=== PATIENT | female | born 1995 | race African-American/Black ===

== ENCOUNTER 2017-04-30 13:18 | Emergency (ER) | payer SELFPAY ==
[2017-04-30 13:28] VITALS: BP 126/83
[2017-04-30 14:29] LABS: APPEARANCE,URINE CLEAR; BILIRUBIN,URINE NEGATIVE (NEGATIVE); GLUCOSE, URINE NEGATIVE (NEGATIVE); KETONES,URINE NEGATIVE (NEGATIVE); LEUKOCYTE ESTERASE,URINE NEGATIVE (NEGATIVE); NITRITE,URINE NEGATIVE (NEGATIVE); PROTEIN,URINE NEGATIVE (NEGATIVE); URINE SPECIFIC GRAVITY 1.019; UROBILINOGEN,URINE NEGATIVE mg/dL (<2.0)
--- NOTE | 2017-04-30 14:38 | ER Document Report ---
ED GI/ - General Chief Complaint: Abdominal Pain Stated Complaint: ABDOMINAL PAIN,NAUSEA Time Seen by Provider: 04/30/17 13:39 Notes: Patient is a 21-year-old female, past medical history PCOS, schizophrenia, presents with lower abdominal cramping and nausea. Her last menstrual period was March 19, but her periods are irregular she is not sure she is . Denies vaginal bleeding, vaginal discharge, nausea, vomiting, current abdominal pain, dysuria, flank pain, hematuria, chest pain, shortness of breath, diarrhea or constipation. TRAVEL OUTSIDE OF THE [place] IN LAST 30 DAYS: No - Related Data Allergies/Adverse Reactions: No Known Allergies Allergy (Verified 04/30/17 13:24) Past Medical History - General Information source: Patient - Social History Smoking Status: Never Smoker Family History: None Patient has suicidal ideation: No Patient has homicidal ideation: No Renal/ Medical History: Denies: Hx Peritoneal Dialysis Review of Systems - Review of Systems Notes: REVIEW OF SYSTEMS: CONSTITUTIONAL: -fevers, -chills EENT: -eye pain, -difficulty swallowing, -nasal congestion CARDIOVASCULAR:-chest pain, -syncope. RESPIRATORY: -cough, -SOB GASTROINTESTINAL: +lower abdominal cramping, +nausea, -vomiting, -diarrhea GENITOURINARY: -dysuria, -hematuria MUSCULOSKELETAL: -back pain, -neck pain SKIN: -rash or skin lesions. HEMATOLOGIC: -easy bruising or bleeding. LYMPHATIC: -swollen, enlarged glands. NEUROLOGICAL: -altered mental status or loss of consciousness, -headache, - neurologic symptoms PSYCHIATRIC: -anxiety, -depression. ALL OTHER SYSTEMS REVIEWED AND NEGATIVE. Physical Exam - Vital signs Vitals: Temp Pulse Resp BP Pulse Ox 98.9 F 80 16 126/83 H 99 04/30/17 13:24 04/30/17 13:24 04/30/17 13:24 04/30/17 13:24 04/30/17 13:24 - Notes Notes: PHYSICAL EXAMINATION: GENERAL: Well-appearing, well-nourished and in no acute distress. HEAD: Atraumatic, normocephalic. EYES: Pupils equal round and reactive to light, extraocular movements intact, sclera anicteric, conjunctiva are normal. ENT: nares patent, oropharynx clear without exudates. Moist mucous membranes. NECK: Normal range of motion, supple without lymphadenopathy LUNGS: Breath sounds clear to auscultation bilaterally and equal. No wheezes rales or rhonchi. HEART: Regular rate and rhythm without murmurs ABDOMEN: Soft, nontender, normoactive bowel sounds. No guarding, no rebound. No masses appreciated. EXTREMITIES: Normal range of motion, no pitting or edema. No cyanosis. NEUROLOGICAL: Cranial nerves grossly intact. Normal speech, normal gait. Normal sensory and motor exams. PSYCH: Normal mood, normal affect. SKIN: Warm, Dry, normal turgor, no rashes or lesions noted. Course - Re-evaluation Re-evalutation: Patient appears well. Abdomen is soft and nontender. Her urine is clean and she is not . Instructed her to begin Motrin for abdominal cramping and will provide her with a few days of Zofran. Instructed her to follow-up with [facility] for further evaluation of her PCOS. - Vital Signs Vital signs: Temp Pulse Resp BP Pulse Ox 98.9 F 80 16 126/83 H 99 04/30/17 13:24 04/30/17 13:24 04/30/17 13:24 04/30/17 13:24 04/30/17 13:24 Discharge - Discharge Clinical Impression: Abdominal cramping, Nausea Condition: Stable Disposition: HOME, SELF-CARE Additional Instructions: ABDOMINAL PAIN: There are many causes of abdominal pain. Pain can mean a serious problem requiring surgery (such as appendicitis). It can also be an innocent problem that goes away on its own (such as a viral infection). Often, time must pass to determine the cause of pain. The physician does not feel that hospitalization is necessary, at present. Things may change within the next 24 hours. Call the doctor or come back for re- examination if any problems occur, such as: (1) Pain that becomes more severe, steady, or becomes concentrated in one specific area. Also, pain that is more severe with movement or coughing. (2) Vomiting that persists or becomes more frequent. (3) Blood in the vomitus, urine, or bowel movements. Blood in the stool may have a tarry or black appearance. (4) Shaking chills or fever greater than 100 degrees F. (5) The abdomen becomes more distended or swollen. (6) Bowel movements cease. (7) Failure to improve as expected. NORMAL EXAM AND WORKUP: At this time, your examination and workup show no significant abnormality. No significant abnormal physical findings are noted. All laboratory, EKG, and imaging (x-ray, CT scans, ultrasound) studies that were ordered show no significant abnormality. Although your examination and all studies that were ordered showed no significant abnormal finding, there are no examinations and no studies that are 100% accurate. There is always the possibility that some abnormality could exist and not be detected with physical examination or within the limits and capabilities of laboratory and other studies. You should return or follow up as you were instructed on your visit today for further evaluation if your symptoms do not resolve. ANTINAUSEA MEDICATION: You have been given a medication to suppress nausea and vomiting. This type of medication can be given as a shot, pill, or suppository. It will usually last for many hours. Pills and shots usually last six to eight hours, suppositories last about 12 hours. For the typical illness, only one or two doses of the medication may be necessary. Mild lightheadedness may occur. This type of medicine can cause drowsiness. Do not drive or operate dangerous machinery while under its influence. Do not mix with alcohol. See your doctor at once if you have muscle spasms or tightness, or uncontrollable motions (particularly of the neck, mouth, or jaw). Persistent vomiting or severe lightheadedness should also be evaluated by the physician. FOLLOW-UP CARE: If you have been referred to a physician for follow-up care, call the physician s office for an appointment as you were instructed or within the next two days. If you experience worsening or a significant change in your symptoms, notify the physician immediately or return to the Emergency Department at any time for re-evaluation. Prescriptions: Ondansetron [Zofran Odt 4 mg Tablet] 1 - 2 tab PO Q4H PRN #15 tab.rapdis PRN Reason: For Nausea/Vomiting Referrals: ATUL STONE MD [ACTIVE STAFF] - Follow up as needed
== END 2017-04-30 14:52 | disposition home or self-care (01) ==
LOC: ER 13:18
DX: R10.30 Lower abdominal pain, unspecified (principal); R11.0 Nausea
CPT/HCPCS: 81001; 81025; 99284

== ENCOUNTER 2017-05-01 12:50 | Emergency (ER) | payer SELFPAY ==
[2017-05-01] MEDS ORDERED: ONDANSETRON 4 MG TAB.RAPDIS PO ONE (13:40)
[2017-05-01] MEDS ORDERED: IBUPROFEN 600 MG TABLET PO ONE (13:40)
--- NOTE | 2017-05-01 13:42 | ER Document Report ---
ED Medical Screen (RME) - General Chief Complaint: Abdominal Pain Stated Complaint: ABDOMINAL CRAMPING Time Seen by Provider: 05/01/17 13:36 Notes: Patient is a 21-year-old female, past medical history PCOS, schizophrenia, presents with 2 days of right-sided pelvic pain and cramping. She is also having nausea. She was seen in the emergency room yesterday, had a negative test and was discharged home with anti-inflammatories. Patient denies diarrhea, constipation, vomiting or urinary symptoms. PE: Left lower quadrant tenderness, normal bowel sounds I have greeted and performed a rapid initial assessment of this patient. A comprehensive ED assessment and evaluation of the patient, analysis of test results and completion of the medical decision making process will be conducted by additional ED providers. TRAVEL OUTSIDE OF THE [place] IN LAST 30 DAYS: No - Related Data Allergies/Adverse Reactions: No Known Allergies Allergy (Verified 04/30/17 13:24) Past Medical History Renal/ Medical History: Denies: Hx Peritoneal Dialysis Physical Exam - Vital signs Vitals: Temp Pulse Resp BP Pulse Ox 98.3 F 80 16 135/71 H 97 05/01/17 12:54 05/01/17 12:54 05/01/17 12:54 05/01/17 12:54 05/01/17 12:54 Course - Vital Signs Vital signs: Temp Pulse Resp BP Pulse Ox 98.3 F 80 16 135/71 H 97 05/01/17 12:54 05/01/17 12:54 05/01/17 12:54 05/01/17 12:54 05/01/17 12:54
--- NOTE | 2017-05-01 14:18 | ER Document Report ---
ED GI/ - General Chief Complaint: Abdominal Pain Stated Complaint: ABDOMINAL CRAMPING Time Seen by Provider: 05/01/17 13:36 Notes: 21 yo female with hx/o PCOS and schizophrenia c/o lower abdominal cramping x several days. pt reports irregular periods. pt was evaluated in ED yesterday for same. negative UHCG. treated with motrin but reports cramping has been more intense today and a little sharper on the left side. denies dysuria, vaginal discharge, vaginal odor or pain. no n/v TRAVEL OUTSIDE OF THE [place] IN LAST 30 DAYS: No - HPI Patient complains to provider of: Abdominal pain Timing/Duration: Gradual, Persistent, Worse Quality of pain: Cramping Pain Level: 4 Location: Suprapubic Adult Front & Back Diagram: 1 - pain, cramping Vaginal bleeding (Compared to normal period): None - Related Data Allergies/Adverse Reactions: No Known Allergies Allergy (Verified 04/30/17 13:24) Past Medical History - General Information source: Patient - Social History Smoking Status: Never Smoker Chew tobacco use (# tins/day): No Frequency of alcohol use: None Drug Abuse: None Lives with: Spouse/Significant other Family History: None Patient has suicidal ideation: No Patient has homicidal ideation: No - Medical History Medical History: Other - PCOS Renal/ Medical History: Denies: Hx Peritoneal Dialysis Psychiatric Medical History: Reports: Hx Schizophrenia Review of Systems - Review of Systems Constitutional: No symptoms reported EENT: No symptoms reported Cardiovascular: No symptoms reported Respiratory: No symptoms reported Gastrointestinal: See HPI Genitourinary: No symptoms reported Female Genitourinary: No symptoms reported Musculoskeletal: No symptoms reported Skin: No symptoms reported Hematologic/Lymphatic: No symptoms reported Neurological/Psychological: No symptoms reported Physical Exam - Vital signs Vitals: Temp Pulse Resp BP Pulse Ox 98.3 F 80 16 135/71 H 97 05/01/17 12:54 05/01/17 12:54 05/01/17 12:54 05/01/17 12:54 05/01/17 12:54 Interpretation: Normal - General General appearance: Appears well, Alert In distress: None - HEENT Head: Normocephalic, Atraumatic Eyes: Normal Pupils: PERRL - Respiratory Respiratory status: No respiratory distress Chest status: Nontender Breath sounds: Normal Chest palpation: Normal - Cardiovascular Rhythm: Regular Heart sounds: Normal auscultation Murmur: No - Abdominal Inspection: Normal Distension: No distension Bowel sounds: Normal Tenderness: Tender - mild suprapbic tenderness. No: McBurney's point, Childs's sign, Guarding, Rebound Organomegaly: No organomegaly - Back Back: Normal, Nontender - Extremities General upper extremity: Normal inspection, Nontender, Normal color, Normal ROM , Normal temperature General lower extremity: Normal inspection, Nontender, Normal color, Normal ROM , Normal temperature, Normal weight bearing. No: Gaudencio's sign - Neurological Neuro grossly intact: Yes Cognition: Normal Orientation: AAOx4 Cj Coma Scale Eye Opening: Spontaneous [place] Coma Scale Verbal: Oriented [place] Coma Scale Motor: Obeys Commands [place] Coma Scale Total: 15 Speech: Normal Motor strength normal: LUE, RUE, LLE, RLE Sensory: Normal - Psychological Associated symptoms: Normal affect, Normal mood - Skin Skin Temperature: Warm Skin Moisture: Dry Skin Color: Normal Course - Re-evaluation Re-evalutation: 05/01/17 14:20 pt appears well, NAD. abdomen is soft, mildly tender suprapubic area. will continue to monitor 05/01/17 15:53 serum HCG neg, US normal. abdomen soft, nontender. pt is stable for discharge and SQL REPORT WRITER f/u. pt agreeable with plan - Vital Signs Vital signs: Temp Pulse Resp BP Pulse Ox 98.3 F 80 16 135/71 H 97 05/01/17 12:54 05/01/17 12:54 05/01/17 12:54 05/01/17 12:54 05/01/17 12:54 Discharge - Discharge Clinical Impression: Abdominal cramping, Nausea Condition: Stable Disposition: HOME, SELF-CARE Instructions: Antinausea Medication ([facility]) Additional Instructions: Take your Ibuprofen as prescribed Anti nausea medication as needed Follow up with PDM or SQL REPORT WRITER if symptoms persist Forms: Elevated Blood Pressure
--- NOTE | 2017-05-01 15:36 | RADIOLOGY REPORT (SQ) ---
EXAM DESCRIPTION: U/S NON OB PEL TV W/DOPPLER COMPLETED DATE/TIME: 05/01/2017 2:52 pm REASON FOR STUDY: left adnexal pain COMPARISON: None. TECHNIQUE: Dynamic and static grayscale images acquired of the pelvis via transvaginal approach and recorded on PACS. Additional selected color Doppler and spectral images recorded. LIMITATIONS: None. FINDINGS: UTERUS: Contour normal. No mass. ENDOMETRIAL STRIPE: No focal or generalized thickening. No masses. CERVIX: No nabothian cysts. RIGHT OVARY: No abnormal masses. RIGHT OVARY DOPPLER: Normal arterial vascular flow without evidence for torsion. LEFT OVARY: No abnormal masses. LEFT OVARY DOPPLER: Normal arterial vascular flow without evidence for torsion. FREE FLUID: Small amount. OTHER: No other significant finding. MEASUREMENTS: UTERUS: 5.6 x 3.6 x 2.6 cm ENDOMETRIAL STRIPE: 1 mm. RIGHT OVARY: 2.6 x 2.2 x 2.5 cm LEFT OVARY: 2.1 x 1.5 x 2.0 cm IMPRESSION: NORMAL TRANSVAGINAL PELVIC ULTRASOUND. TECHNICAL DOCUMENTATION: JOB ID: [id number]- All Rights Reserved
[2017-05-01 16:07] VITALS: BP 131/82
== END 2017-05-01 16:13 | disposition home or self-care (01) ==
LOC: ER 12:50
DX: R10.9 Unspecified abdominal pain (principal); F20.9 Schizophrenia, unspecified; R11.0 Nausea
CPT/HCPCS: 99284; 36415; 84702; 76830; 93976; S0119

== ENCOUNTER 2017-05-12 22:43 | Emergency (ER) | payer SELFPAY ==
--- NOTE | 2017-05-13 00:15 | ER Document Report ---
ED General - General Chief Complaint: Syncope/ facial injury Stated Complaint: POSSIBLE SYNCOPE/FACE INJURY Time Seen by Provider: 05/12/17 23:57 Notes: Patient is a 21-year-old female who presents with complaint of possible syncopal episode. Patient said that she had schizophrenia. She says she suddenly felt overwhelmed with anxiety. She said that she felt forces in her body that caused her to go to the ground. She said she was on her hands and knees and then she felt as if something came behind her head to slam down to the concrete. No complete loss of consciousness. Patient has a history of schizophrenia. No other completes TRAVEL OUTSIDE OF THE [place] IN LAST 30 DAYS: No - Related Data Allergies/Adverse Reactions: No Known Allergies Allergy (Verified 04/30/17 13:24) Past Medical History - Social History Smoking Status: Never Smoker Frequency of alcohol use: None Drug Abuse: None Family History: None Renal/ Medical History: Denies: Hx Peritoneal Dialysis Psychiatric Medical History: Reports: Hx Schizophrenia Review of Systems - Review of Systems Notes: My Normal Review Basic REVIEW OF SYSTEMS: CONSTITUTIONAL : Denies fever, chills, or sweats. Denies recent illness. EENT: Facial pain. CARDIOVASCULAR: Denies chest pain. RESPIRATORY: Denies cough, cold, or chest congestion. Denies shortness of breath, difficulty breathing, or wheezing. GASTROINTESTINAL: Denies abdominal pain. Denies nausea, vomiting, or diarrhea. Denies constipation. Last BM: MUSCULOSKELETAL: Denies neck or back pain or joint pain or swelling. SKIN: Denies rash or skin lesions. NEUROLOGICAL: Denies altered mental status or loss of consciousness. Denies headache. Denies weakness or paralysis or loss of use of either side. Denies problems with gait or speech. Denies sensory or motor loss. PSYCHIATRIC: Anxiety. Some hallucinations. ALL OTHER SYSTEMS REVIEWED AND NEGATIVE. Physical Exam - Vital signs Vitals: Resp 18 05/12/17 22:44 - Notes Notes: General Appearance: Well nourished, alert, cooperative, no acute distress, no obvious discomfort. Vitals: reviewed, See vital signs table. Head: Some swelling over the forehead and over the right maxillary area. A few superficial abrasions. Eyes: PERRL, EOMI, Conjuctiva clear Mouth: No decreasd moisture Throat: No tonsillar inflammation, No airway obstruction, Neck: Supple, no neck tenderness, Lungs: No wheezing, No rales, No rhonci, No accessory muscle use, good air exchange bilaterally. Heart: Normal rate, Regular rythm, No murmur, no rub Abdomen: Normal BS, soft, No rigidity, No abdominal tenderness, No guarding, no rebound, no abdominal masses, no organomegaly Extremities: strength 5/5 in all extremities, good pulses in all extremities, no swelling or tenderness in the extremities, no edema. Skin: warm, dry, appropriate color, no rash Neuro: speech clear, oriented x 3, normal affect, responds appropriately to questions. Nerves II through XII are intact. Distal sensation intact. Patient moves all extremities without difficulty. Course - Re-evaluation Re-evalutation: 05/13/17 01:31 Patient says she is feeling much improved. I did offer for her to stay and speak with her psychiatry but she says she prefers to follow-up outpatient with her own doctor. She said she would return if she had recurrent hallucinations or worsening anxiety or feels unwell. CT scan of her face is negative for any fracture. She has just some superficial abrasions that did not require any type of suturing. At this time I feel she is safe to be discharged home but she is encouraged to return to ER if she feels worse in any way. Patient agrees with plan and will be discharged home. Dictation of this chart was performed using voice recognition software; therefore, there may be some unintended grammatical errors. - Vital Signs Vital signs: Temp Pulse Resp BP Pulse Ox 99.0 F 119 H 18 104/58 L 96 05/12/17 22:51 05/12/17 22:51 05/12/17 22:51 05/12/17 22:51 05/12/17 22:51 Discharge - Discharge Clinical Impression: Facial contusion Qualifiers: Encounter type: initial encounter Qualified Code(s): S00.83XA - Contusion of other part of head, initial encounter Condition: Good Disposition: HOME, SELF-CARE Additional Instructions: Please return to the ER if you have recurrent hallucinations, uncontrollable anxiety, severe headache, vomiting, thoughts of suicide, or if you feel unwell. Please follow up with your doctor at the next available appointment.
--- NOTE | 2017-05-13 01:07 | RADIOLOGY REPORT (SQ) ---
EXAM DESCRIPTION: CT FACIAL AREA WITHOUT COMPLETED DATE/TIME: 05/13/2017 12:43 am REASON FOR STUDY: trauma COMPARISON: None. TECHNIQUE: Noncontrasted images through the facial bones and orbits windowed for bone and soft tissu e. Additional coronal and sagittal reconstructed images reviewed. All images stored on PACS. All CT scanners at this facility use dose modulation, iterative reconstruction, and/or weight based d osing when appropriate to reduce radiation dose to as low as reasonably achievable (ALARA). [facility]: Dose Right [facility]: CareDose [facility]: Dose Right [facility]: Teradose 4D [facility]: [employer] RADIATION DOSE: Up-to-date CT equipment and radiation dose reduction techniques were employed. CTDIv ol: 30.4 mGy. DLP: 543 mGy-cm. mGy. LIMITATIONS: None. FINDINGS: FACIAL BONES: No fracture or bone lesion. ORBITS: Intact. No fracture. Symmetric intact globes and retroorbital soft tissues. PARANASAL SINUSES: Clear. No significant mucosal thickening, mass or fluid. No nasal polyps. Maxill ragini sinus outlets are patent. 0.5 cm penetration of bilateral maxillary molars at the posterior aspe cts of the maxillary air cells. SOFT TISSUES: No mass or edema. INFERIOR BRAIN: Limited view. No acute findings. OTHER: No other significant finding. IMPRESSION: Facial bones appear intact. Moderate reversed lordotic curvature of the mid cervical sp ine which may indicate soft tissue injury or spasm. TECHNICAL DOCUMENTATION: JOB ID: [id number] Quality ID # [id number]: Final reports with documentation of one or more dose reduction techniques (e.g., Au tomated exposure control, adjustment of the mA and/or kV according to patient size, use of iterative reconstruction technique) 2010 [employer]- All Rights Reserved
[2017-05-13 02:23] VITALS: BP 128/66
== END 2017-05-13 02:20 | disposition home or self-care (01) ==
LOC: ER 22:43
DX: S00.83XA Contusion of other part of head, initial encounter (principal); X58.XXXA Exposure to other specified factors, initial encounter; F41.9 Anxiety disorder, unspecified; F20.9 Schizophrenia, unspecified
CPT/HCPCS: 70486; 99285

== ENCOUNTER 2017-06-21 13:07 | Emergency (ER) | payer SELFPAY ==
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
[2017-06-21] MEDS ORDERED: PALIPERIDONE 6 MG TAB.ER.24 PO ONE (15:17)
[2017-06-21 15:52] VITALS: BP 127/97
== END 2017-06-21 15:52 | disposition home or self-care (01) ==
LOC: ER 13:07
DX: F20.0 Paranoid schizophrenia (principal); F17.200 Nicotine dependence, unspecified, uncomplicated
CPT/HCPCS: 99284; J3490

== ENCOUNTER 2018-01-12 22:34 | Emergency (ER) | payer OTHER ==
--- NOTE | 2018-01-12 23:34 | ER Document Report ---
ED General - General Chief Complaint: Flank Pain Stated Complaint: FLANK PAIN Time Seen by Provider: 01/12/18 23:08 Mode of Arrival: Ambulatory Information source: Patient Notes: 22-year-old female presents with complaints of flank pain chest wall pain on the left. Patient notes that she was having pain on the right side has been using left-sided muscles at work lifting heavy objects, patient notes that now it hurts to side bend rotate to a deep breath. She denies any DVT or PE risk factors notes it hurts upon palpation TRAVEL OUTSIDE OF THE U.S. IN LAST 30 DAYS: No - HPI Onset: Other Onset/Duration: Persistent Quality of pain: Achy Severity: Mild Pain Level: 1 Associated symptoms: Body/muscle aches Exacerbated by: Movement, Walking Relieved by: Denies Similar symptoms previously: Yes Recently seen / treated by doctor: No - Related Data Allergies/Adverse Reactions: No Known Allergies Allergy (Verified 04/30/17 13:24) Past Medical History - Social History Smoking Status: Never Smoker Cigarette use (# per day): No Chew tobacco use (# tins/day): No Smoking Education Provided: No Family History: Reviewed & Not Pertinent Renal/ Medical History: Denies: Hx Peritoneal Dialysis Psychiatric Medical History: Reports: Hx Anxiety, Hx Post Traumatic Stress Disorder, Hx Schizophrenia Review of Systems - Review of Systems Notes: REVIEW OF SYSTEMS: CONSTITUTIONAL : Denies fever, chills, or sweats. Denies recent illness. EENT: Denies eye, ear, throat, or mouth pain or symptoms. Denies nasal or sinus congestion or discharge. Denies throat, tongue, or mouth swelling or difficulty swallowing. CARDIOVASCULAR: Denies chest pain. Denies palpitations or racing or irregular heart beat. Denies ankle edema. RESPIRATORY: Denies cough, cold, or chest congestion. Denies shortness of breath, difficulty breathing, or wheezing. GASTROINTESTINAL: Denies abdominal pain or distention. Denies nausea, vomiting , or diarrhea. Denies blood in vomitus, stools, or per rectum. Denies black, tarry stools. Denies constipation. GENITOURINARY: Denies difficulty urinating, painful urination, burning, frequency, blood in urine, or discharge. FEMALE GENITOURINARY: Denies vaginal bleeding, heavy or abnormal periods, irregular periods. Denies vaginal discharge or odor. MUSCULOSKELETAL: Left-sided chest wall pain flank pain SKIN: Denies rash, lesions or sores. HEMATOLOGIC : Denies easy bruising or bleeding. LYMPHATIC: Denies swollen, enlarged glands. NEUROLOGICAL: Denies confusion or altered mental status. Denies passing out or loss of consciousness. Denies dizziness or lightheadedness. Denies headache. Denies weakness or paralysis or loss of use of either side. Denies problems with gait or speech. Denies sensory loss, numbness, or tingling. Denies seizures. PSYCHIATRIC: Denies anxiety or stress. Denies depression, suicidal ideation, or homicidal ideation. ALL OTHER SYSTEMS REVIEWED AND NEGATIVE. PHYSICAL EXAMINATION: GENERAL: Well-appearing, well-nourished and in no acute distress. HEAD: Atraumatic, normocephalic. EYES: Pupils equal round and reactive to light, extraocular movements intact, conjunctiva are normal. ENT: Nares patent, oropharynx clear without exudates. Moist mucous membranes. NECK: Normal range of motion, supple without lymphadenopathy LUNGS: Breath sounds clear to auscultation bilaterally and equal. No wheezes rales or rhonchi. HEART: Regular rate and rhythm without murmurs ABDOMEN: Soft, nontender, nondistended abdomen. No guarding, no rebound. No masses appreciated. Female : deferred Musculoskeletal: Normal range of motion, no pitting or edema. No cyanosis. Pain is completely reproducible upon sidebending rotation and palpation of the left mid axillary line left flank NEUROLOGICAL: Cranial nerves grossly intact. Normal speech, normal gait. Normal sensory, motor exams PSYCH: Normal mood, normal affect. SKIN: Warm, Dry, normal turgor, no rashes or lesions noted. Dictation was performed using [employer] voice recognition software Physical Exam - Vital signs Vitals: Temp Pulse Resp BP Pulse Ox 99.2 F 81 16 143/91 H 97 01/12/18 22:58 01/12/18 22:58 01/12/18 22:58 01/12/18 22:58 01/12/18 22:58 Course - Re-evaluation Re-evalutation: 01/12/18 23:51 Patient's pain is completely musculoskeletal, she overall looks well is in no distress, patient is able to ambulate with no difficulty is no neurological deficits denies any DVT or PE risk factors I will discharge her home with anti- inflammatories pain control and close follow-up After performing a Medical Screening Examination, I estimate there is LOW risk for EXPANDING OR RUPTURED ABDOMINAL AORTIC ANEURYSM, CAUDA EQUINA SYNDROME, EPIDURAL MASS LESION, or HERNIATED DISK CAUSING SEVERE SPINAL STENOSIS, thus I consider the discharge disposition reasonable. I have reevaluated this patient multiple times and no significant life threatening changes are noted. The patient and I have discussed the diagnosis and risks, and we agree with discharging home and close follow-up. We also discussed returning to the Emergency Department immediately if new or worsening symptoms occur with the understanding that symptoms and presentations can change. We have discussed the symptoms which are most concerning (e.g., saddle anesthesia, urinary or bowel incontinence or retention, changing or worsening pain) that necessitate immediate return. - Vital Signs Vital signs: Temp Pulse Resp BP Pulse Ox 99.2 F 81 16 143/91 H 97 01/12/18 22:58 01/12/18 22:58 01/12/18 22:58 01/12/18 22:58 01/12/18 22:58 Discharge - Discharge Clinical Impression: Flank pain, Costochondral chest pain Condition: Stable Disposition: HOME, SELF-CARE Instructions: Anti-Inflammatory Medication ([facility]), Chest Wall Pain ([facility]) Additional Instructions: Follow up with your physician tomorrow for further care or return to the ED IMMEDIATELY if symptoms worsen or new concerns occur. If you cannot afford to follow up with your primary care physician a list of low cost clinics have been provided at the end of your discharge papers as well. Prescriptions: Ketorolac Tromethamine [Toradol 10 mg Tablet] 10 mg PO Q8HP PRN #12 tablet PRN Reason: Forms: Return to Work
[2018-01-12] MEDS ORDERED: KETOROLAC TROMETHAMINE 10 MG TABLET PO ONE (23:35)
[2018-01-12] MEDS ORDERED: CYCLOBENZAPRINE HCL 10 MG TABLET PO ONE (23:35)
[2018-01-12] MEDS ORDERED: IBUPROFEN 600 MG TABLET PO ONE (23:44)
[2018-01-12 23:58] VITALS: BP 128/73
== END 2018-01-12 23:58 | disposition home or self-care (01) ==
LOC: ER 22:34
DX: R07.89 Other chest pain (principal); R10.9 Unspecified abdominal pain
CPT/HCPCS: 99284

== ENCOUNTER 2018-02-21 00:53 | Emergency (ER) | payer SELFPAY ==
[2018-02-21] MEDS ORDERED: ZIPRASIDONE MESYLATE INJ/PF 20 MG SDV IM ONE (01:02)
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
[2018-02-21 03:12] LABS: ABSOLUTE LYMPHOCYTES (AUTO) 1.5 10^3/uL (0.5-4.7); ABSOLUTE MONOCYTES (AUTO) 0.9 10^3/uL (0.1-1.4); ABSOLUTE NEUT (AUTO) 4.7 10^3/uL (1.7-8.2); BASOPHILS % (AUTO) 0.2 % (0-2); EOSINOPHILS % (AUTO) 0.3 % (0-6); HEMATOCRIT 45.1 % (36.0-47.0); HEMOGLOBIN 15.4 g/dL (12.0-15.5); LYMPHOCYTES % (AUTO) 21.3 % (13-45); MEAN CORPUSCULAR HEMOGLOBIN 30.1 pg (27.0-33.4); MEAN CORPUSCULAR HGB CONC 34.2 g/dL (32.0-36.0); MEAN CORPUSCULAR VOLUME 88 fl (80-97); MONOCYTES % (AUTO) 12.9 % (3-13); PLATELET COUNT 178 10^3/uL (150-450); RED BLOOD COUNT 5.12 10^6/uL (3.72-5.28); RED CELL DISTRIBUTION WIDTH 12.4 % (11.5-14.0); SEGMENTED NEUTROPHILS % (AUTO) 65.3 % (42-78); TOTAL CELLS COUNTED % (AUTO) 100 %; WHITE BLOOD COUNT 7.2 10^3/uL (4.0-10.5)
[2018-02-21 03:21] LABS: ALANINE AMINOTRANSFERASE 23 U/L (9-52); ALBUMIN 4.2 g/dL (3.5-5.0); ALKALINE PHOSPHATASE 94 U/L (38-126); ANION GAP 14 (5-19); ASPARTATE AMINO TRANSFERASE 19 U/L (14-36); BILIRUBIN,DIRECT 0.2 mg/dL (0.0-0.4); BILIRUBIN,TOTAL 1.5 mg/dL (0.2-1.3); BLOOD UREA NITROGEN 14 mg/dL (7-20); CALCIUM 9.7 mg/dL (8.4-10.2); CARBON DIOXIDE 23 mmol/L (22-30); CHLORIDE 107 mmol/L (98-107); GLUCOSE 107 mg/dL (75-110); POTASSIUM 3.7 mmol/L (3.6-5.0); SODIUM 143.5 mmol/L (137-145); TOTAL PROTEIN 7.3 g/dL (6.3-8.2)
[2018-02-21 03:36] LABS: ACETAMINOPHEN < 10 ug/mL (10-30); ALCOHOL < 10 mg/dL (NONE DETECTED); SALICYLATE < 1.0 mg/dL (2.0-20.0)
[2018-02-21 06:52] LABS: APPEARANCE,URINE CLOUDY; BILIRUBIN,URINE NEGATIVE (NEGATIVE); COLOR,URINE AMBER; GLUCOSE, URINE NEGATIVE (NEGATIVE); KETONES,URINE 20 mg/dL (NEGATIVE); LEUKOCYTE ESTERASE,URINE SMALL (NEGATIVE); NITRITE,URINE NEGATIVE (NEGATIVE); PROTEIN,URINE 100 mg/dL (NEGATIVE); URINE SPECIFIC GRAVITY 1.029
[2018-02-21 07:03] LABS: URINE AMPHETAMINES SCREEN NEGATIVE; URINE BARBITURATES SCREEN NEGATIVE; URINE BENZODIAZEPINES SCREEN NEGATIVE; URINE COCAINE SCREEN NEGATIVE; URINE MARIJUANA (THC) SCREEN UNCONFIRMED POSITIVE; URINE METHADONE SCREEN NEGATIVE
[2018-02-21 07:06] LABS: URINE PHENCYCLIDINE SCREEN NEGATIVE
--- NOTE | 2018-02-21 10:21 | EKG REPORT ---
SEVERITY:- OTHERWISE NORMAL ECG - SINUS TACHYCARDIA : Confirmed by: Matilde Lozano 21-Feb-2018 10:20:45
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
[2018-02-21] MEDS: CHLORPROMAZINE HCL 50 MG TABLET PO SCH ×2 (13:03→20:15)
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
[2018-02-21] MEDS: OLANZAPINE 5 MG TABLET PO SCH (18:10)
[2018-02-22] MEDS: CHLORPROMAZINE HCL 50 MG TABLET PO SCH ×3 (04:15→20:30)
--- NOTE | 2018-02-22 09:30 | ER Document Report ---
Doctor's Note Notes: 02/22/18 09:29 Patient stable at this time. Will continue to follow on the ER and follow recommendations of mental health providers. Patient seems to be doing a little bit better today. Nothing acute. Labs reviewed and unremarkable. Vital signs reviewed and unremarkable. 02/22/18 17:26 Becoming more agitated. Was initially refusing her medications. Patient was instructed that there were intramuscular treatment options if she did not take her oral medication she would have to have a shot of medication. Patient calm down. Patient once again later in the day became more agitated and was slamming the door. Verbal orders given that if she continued to misbehave that they did have my permission to put her in restraints but that did not need to happen at that time.
[2018-02-22] MEDS: BENZTROPINE MESYLATE 1 MG TABLET PO SCH (09:33)
[2018-02-22] MEDS: OLANZAPINE 5 MG TABLET PO SCH (09:34)
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
[2018-02-23] MEDS: CHLORPROMAZINE HCL 50 MG TABLET PO SCH ×3 (04:30→20:11)
[2018-02-23] MEDS: OLANZAPINE 5 MG TABLET PO SCH ×2 (09:35→18:05)
[2018-02-23] MEDS: BENZTROPINE MESYLATE 1 MG TABLET PO SCH (09:37)
--- NOTE | 2018-02-23 09:54 | ER Document Report ---
Doctor's Note Notes: 02/23/18 09:53 Patient much more cooperative this morning than when I saw her two nights ago. She is sorry for her actions two nights ago. I have evaluated this patient this am and has no c/o at this time. Feels all of their needs are being met and physical exam is normal. Awaiting dispositon per mental health.
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
[2018-02-24] MEDS: CHLORPROMAZINE HCL 50 MG TABLET PO SCH ×2 (03:22→11:47)
--- NOTE | 2018-02-24 10:03 | ER Document Report ---
Doctor's Note Notes: 02/24/18 10:01 Rounds: Chart reviewed and patient interviewed. Patient being evaluated for hallucinations and an acute psychosis. She has a history of schizophrenia and bipolar disorder. She is currently sleeping and does not awaken to my voice. Staff says she did get up and took a shower this morning and has gone back to sleep. Vital signs are all normal. Patient appears to be medically stable for transfer or discharge. Mohini Dill MD
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
[2018-02-24] MEDS: OLANZAPINE 5 MG TABLET PO SCH (11:47)
[2018-02-24] MEDS: BENZTROPINE MESYLATE 1 MG TABLET PO SCH (11:47)
[2018-02-24 12:55] VITALS: BP 129/73
== END 2018-02-24 12:55 | disposition home or self-care (01) ==
LOC: ER 00:53
DX: F25.0 Schizoaffective disorder, bipolar type (principal); F43.10 Post-traumatic stress disorder, unspecified; R45.850 Homicidal ideations
CPT/HCPCS: 93005; 99285; 96372; 36415; 80307 ×4; 84703; 85025; 80053; 81001; 93010; J3490 ×4; J3486

== ENCOUNTER 2018-03-05 18:13 | Emergency (ER) | payer SELFPAY ==
[2018-03-05 18:22] VITALS: BP 145/83
--- NOTE | 2018-03-05 18:32 | ER Document Report ---
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 During the history when Carmen MOON entered the room, the pt closed her eyes, lifted her glasses up, leaned to the right of the chair, and would not answer anymore questions. She fluttered her eyes, sighed, could not say if the pain was a few seconds or longer during the episode. She then stated " I don't care if I anymore" then got up, opened the door and left the room. I heard her screaming at the top of her lungs in the lobby and slamming the door. I then reviewed previous visits and she was here 02-21-2018 with IVC papers, schizoaffective bipolar disorder. She was inbtercepted in the lobby and will see someone else in the ER. Past Medical History - Social History Smoking Status: Unknown if Ever Smoked Family History: Reviewed & Not Pertinent Renal/ Medical History: Denies: Hx Peritoneal Dialysis Psychiatric Medical History: Reports: Hx Anxiety, Hx Post Traumatic Stress Disorder, Hx Schizophrenia Vertical Provider Document - INFECTION CONTROL TRAVEL OUTSIDE OF THE [place] IN LAST 30 DAYS: No Course - Vital Signs Vital signs: Temp Pulse Resp BP Pulse Ox 98.6 F 83 18 145/83 H 98 03/05/18 18:21 03/05/18 18:21 03/05/18 18:21 03/05/18 18:21 03/05/18 18:21
[2018-03-05] MEDS ORDERED: KETOROLAC TROMETHAMINE INJ/PF 30 MG/1 ML SDV IM ONE (19:07)
--- NOTE | 2018-03-05 19:12 | ER Document Report ---
ED Cardiac - General Chief Complaint: Chest Wall Pain Stated Complaint: CHEST PAIN Time Seen by Provider: 03/05/18 18:32 Mode of Arrival: Ambulatory Information source: Patient TRAVEL OUTSIDE OF THE [place] IN LAST 30 DAYS: No - HPI Patient complains to provider of: Chest pain Notes: Patient is here with complaints of left-sided chest pain. She states the pain is been present for about 6 days now. It is sharp in nature and seems to be worse with deep breath. She states that she thinks she potentially could have pulled something when pulling on water jug. She states the pain is been intermittent for the last 6 days, seems to be worse with occasionally taken a deep breath. Every deep breath does not hurt though. She denies any significant shortness of breath. She denies any cough or fever. She denies any recent long trips or surgeries, leg pain or leg swelling, hormone use, history of DVT or PE, history of cancer. She denies history of high blood pressure, high cholesterol, diabetes. She is a smoker. She also uses marijuana. No rash or traumatic injury. No abdominal pain. No nausea, vomiting, diarrhea. No other significant complaints at this time. - Related Data Allergies/Adverse Reactions: No Known Allergies Allergy (Verified 03/05/18 18:15) Past Medical History - Social History Smoking Status: Unknown if Ever Smoked Family History: Reviewed & Not Pertinent Renal/ Medical History: Denies: Hx Peritoneal Dialysis Psychiatric Medical History: Reports: Hx Anxiety, Hx Post Traumatic Stress Disorder, Hx Schizophrenia Review of Systems - Review of Systems -: Yes All other systems reviewed and negative Physical Exam - Vital signs Vitals: Temp Pulse Resp BP Pulse Ox 98.6 F 83 18 145/83 H 98 03/05/18 18:21 03/05/18 18:21 03/05/18 18:21 03/05/18 18:21 03/05/18 18:21 - Notes Notes: GENERAL: alert, cooperative, nontoxic, no distress. HEAD: normocephalic, atraumatic EYES: conjunctiva pink without discharge, no external redness or swelling. EARS: no external swelling, no external redness NOSE: atraumatic, no external swelling MOUTH/THROAT: mucous membranes moist and pink, posterior pharynx without erythema, swelling, exudate. No trismus or drooling. NECK: soft, supple, full range of motion, no meningismus. CHEST: no distress, lungs clear and equal throughout. No wheezing, rales, rhonchi. CARDIAC: regular rate and rhythm, no murmur, normal capillary refill, normal pulses. No peripheral edema noted. ABDOMEN: Soft, nontender. BACK: full range of motion, no CVA tenderness. EXTREMITIES: full range of motion of all extremities. No redness, no swelling. NEURO: alert and oriented x 3, no focal deficits, full range of motion of all extremities. PYSCH: appropriate mood, affect. Patient is cooperative. SKIN: pink, warm, dry, no rash. Course - Re-evaluation Re-evalutation: 03/05/18 19:27 Patient is nontoxic appearing with stable vitals. The patient was here with complaints of left-sided chest pain. Seems to be worse when she takes a deep breath occasionally. She has no ACS risk factors and has no PE risk factors. She is PERC rule negative for PE. EKG shows no acute abnormality. Chest x-ray has been ordered. Apparently the patient became upset and left her room and then stormed out the front ER door. She did not give staff any idea as to the reasoning behind her being upset or leaving. She had had a similar incident just prior to me seeing her with the previous provider. This point the patient has eloped the emergency department. - Vital Signs Vital signs: Temp Pulse Resp BP Pulse Ox 98.6 F 83 18 145/83 H 98 03/05/18 18:21 03/05/18 18:21 03/05/18 18:21 03/05/18 18:21 03/05/18 18:21 - EKG Interpretation by Me EKG shows normal: Sinus rhythm, [place], Intervals, QRS Complexes, ST-T Waves Rate: Normal When compared to previous EKG there are: No significant change Discharge - Discharge Clinical Impression: Chest pain Qualifiers: Chest pain type: chest pain on breathing Qualified Code(s): R07.1 - Chest pain on breathing; R07.81 - Pleurodynia Condition: Stable Disposition: ELOPED
--- NOTE | 2018-03-05 23:23 | EKG REPORT ---
SEVERITY:- NORMAL ECG - SINUS RHYTHM : Confirmed by: Matilde Lozano 05-Mar-2018 23:22:47
== END 2018-03-05 19:18 | disposition left against medical advice (07) ==
LOC: ER 18:13
DX: R07.1 Chest pain on breathing (principal); R07.81 Pleurodynia; X50.0XXA Overexertion from strenuous movement or load, initial encounter; F17.200 Nicotine dependence, unspecified, uncomplicated; F12.90 Cannabis use, unspecified, uncomplicated
CPT/HCPCS: 93005; 93010; 99281